=== PATIENT | male | born 1980 | race Two or more races ===

== ENCOUNTER 2017-10-25 08:03 | Emergency (ER) | payer OTHER ==
[~2017-10-25] VITALS: Ht 180.3 cm; Wt 113.4 kg
[2017-10-25 08:17] VITALS: BP 137/80
[2017-10-25] MEDS ORDERED: cefTRIAXone SOD 1,000 MG VL IM ONE (08:45)
== END 2017-10-25 09:30 | disposition home or self-care (01) ==
LOC: ER 08:03
DX: J20.9 Acute bronchitis, unspecified (principal); J02.9 Acute pharyngitis, unspecified
CPT/HCPCS: 71046; 96372; 99284; J0696

== ENCOUNTER 2017-11-26 18:23 | Emergency (ER) | payer OTHER ==
[~2017-11-26] VITALS: Ht 180.3 cm; Wt 111.1 kg
[2017-11-26 22:06] VITALS: BP 121/76
[2017-11-26] MEDS ORDERED: BACLOFEN 10 MG TAB PO ONE (22:30)
[2017-11-26] MEDS ORDERED: IBUPROFEN 600 MG TAB PO ONE (22:30)
== END 2017-11-26 22:53 | disposition home or self-care (01) ==
LOC: ER 18:23
DX: M25.551 Pain in right hip (principal)

== ENCOUNTER 2017-12-16 08:57 | Emergency (ER) | payer OTHER ==
[~2017-12-16] VITALS: Ht 180.3 cm; Wt 111.1 kg
[2017-12-16 09:10] VITALS: BP 149/84
[2017-12-16] MEDS ORDERED: TETANUS-DIPTH-ACEL PERTUSSIS 0.5ML SYRG IM ONE (10:15)
[2017-12-16] MEDS ORDERED: cefTRIAXone SOD 1,000 MG VL IM ONE (10:15)
== END 2017-12-16 10:59 | disposition home or self-care (01) ==
LOC: ER 08:57
DX: L03.115 Cellulitis of right lower limb (principal)
CPT/HCPCS: 73590; 90471; 90715; 96372; 99284; J0696